=== PATIENT | male | born 1975 | race Hispanic/Latino ===

== ENCOUNTER 2017-11-07 15:39 | Emergency (ER) | payer OTHER | END 2017-11-07 17:35 | disposition home or self-care (01) | LOC: EDH 15:39 | DX: S50.12XA Contusion of left forearm, initial encounter (principal); J20.9 Acute bronchitis, unspecified; Z88.0 Allergy status to penicillin; Z88.1 Allergy status to other antibiotic agents; Z87.891 Personal history of nicotine dependence; W18.39XA Other fall on same level, initial encounter; Y93.89 Activity, other specified; Y92.89 Other specified places as the place of occurrence of the external cause; Y99.8 Other external cause status | CPT/HCPCS: 71046; 73090; 87804 ==

== ENCOUNTER → 2018-01-04 | Outpatient (CLI) | payer OTHER | END | disposition home or self-care (01) | LOC: RAH 10:32 | PROVIDERS: ATTEND Internal Medicine | DX: Z01.818 Encounter for other preprocedural examination (principal); J96.10 Chronic respiratory failure, unspecified whether with hypoxia or hypercapnia; G47.33 Obstructive sleep apnea (adult) (pediatric) | CPT/HCPCS: 71046 ==

== ENCOUNTER → 2018-01-20 | Outpatient (CLI) | payer OTHER ==
[~2018-01-20] MED LIST: ALBUTEROL SULFATE 0.083% 2.5 MG/3 ML INH IH ONE
== END | disposition home or self-care (01) ==
LOC: RESP 14:39
PROVIDERS: ATTEND Internal Medicine
DX: E66.2 Morbid (severe) obesity with alveolar hypoventilation (principal); R06.02 Shortness of breath
CPT/HCPCS: 94060; 94727; 94729

== ENCOUNTER → 2018-01-26 | Outpatient (CLI) | payer OTHER | END | disposition home or self-care (01) | LOC: SHCH 10:11 | PROVIDERS: ATTEND Internal Medicine Cardiovascular Disease | DX: I11.0 Hypertensive heart disease with heart failure (principal); I50.9 Heart failure, unspecified; G47.30 Sleep apnea, unspecified; I25.10 Atherosclerotic heart disease of native coronary artery without angina pectoris; I48.91 Unspecified atrial fibrillation | CPT/HCPCS: 93306 ==

== ENCOUNTER 2019-01-14 16:20 | Emergency (ER) | payer OTHER | END 2019-01-14 18:02 | disposition home or self-care (01) | LOC: EDH 16:20 | DX: S13.4XXA Sprain of ligaments of cervical spine, initial encounter (principal); S29.012A Strain of muscle and tendon of back wall of thorax, initial encounter; R51 Headache; I50.9 Heart failure, unspecified; Z88.1 Allergy status to other antibiotic agents; Z88.0 Allergy status to penicillin; Z98.890 Other specified postprocedural states; Z87.891 Personal history of nicotine dependence; V59.49XA Driver of pick-up truck or van injured in collision with other motor vehicles in traffic accident, initial encounter; Y93.89 Activity, other specified; Y92.89 Other specified places as the place of occurrence of the external cause; Y99.8 Other external cause status | CPT/HCPCS: 72040; 72072 ==

== ENCOUNTER 2019-03-02 18:16 | Emergency (ER) | payer OTHER ==
[2019-03-02] MEDS ORDERED: DIAZEPAM 5 MG TABLET ONE (19:12)
[2019-03-02] MEDS ORDERED: ACETAMINOPHEN EXTRA STRENGTH 500 MG TABLET ONE (19:12)
== END 2019-03-02 20:12 | disposition home or self-care (01) ==
LOC: EDH 18:16
DX: G43.909 Migraine, unspecified, not intractable, without status migrainosus (principal); I50.9 Heart failure, unspecified; E66.01 Morbid (severe) obesity due to excess calories; Z88.1 Allergy status to other antibiotic agents; Z88.0 Allergy status to penicillin; Z68.44 Body mass index [BMI] 60.0-69.9, adult

== ENCOUNTER 2020-02-23 00:50 | Emergency (ER) | payer OTHER ==
[2020-02-23] MEDS ORDERED: LIDOCAINE 5% TOPICAL PATCH TP ONE (01:54)
== END 2020-02-23 02:11 | disposition home or self-care (01) ==
LOC: EDH 00:50
DX: S20.229A Contusion of unspecified back wall of thorax, initial encounter (principal); S30.0XXA Contusion of lower back and pelvis, initial encounter; E66.01 Morbid (severe) obesity due to excess calories; Z88.0 Allergy status to penicillin; Z88.1 Allergy status to other antibiotic agents; Z88.5 Allergy status to narcotic agent; W18.39XA Other fall on same level, initial encounter; Y93.89 Activity, other specified; Y92.89 Other specified places as the place of occurrence of the external cause; Y99.8 Other external cause status
CPT/HCPCS: 72072; 72100; 72170

== ENCOUNTER 2021-01-30 21:30 | Emergency (ER) | payer OTHER ==
[2021-01-30] MEDS ORDERED: DIPHENHYDRAMINE HCL 25 MG CAPSULE ONE (21:51)
[2021-01-30] MEDS ORDERED: FAMOTIDINE 20MG TAB 20 MG TAB ONE (21:51)
[2021-01-30] MEDS ORDERED: METHYLPREDNISOLONE SOD SUCC 125MG/2ML VIAL ONE (21:52)
== END 2021-01-30 22:10 | disposition home or self-care (01) ==
LOC: EDH 21:30
DX: L50.0 Allergic urticaria (principal); I50.9 Heart failure, unspecified; Z88.0 Allergy status to penicillin; Z88.1 Allergy status to other antibiotic agents; Z72.0 Tobacco use; E66.01 Morbid (severe) obesity due to excess calories; Z68.43 Body mass index [BMI] 50.0-59.9, adult
CPT/HCPCS: 96372; 99283; J2930; Q0163

== ENCOUNTER 2021-02-23 00:44 | Emergency (ER) | payer OTHER ==
[2021-02-23] MEDS ORDERED: SULFAMETHOX-TMP DS 800/160 TAB ONE (01:34)
[2021-02-23] MEDS ORDERED: LIDOCAINE HCL 2% JELLY 5 ML ONE (01:34)
[2021-02-23] MEDS ORDERED: KETOROLAC TROMETHAMINE 60 MG/2 ML VIAL ONE (01:34)
== END 2021-02-23 01:53 | disposition home or self-care (01) ==
LOC: EDH 00:44
DX: K02.9 Dental caries, unspecified (principal); K04.7 Periapical abscess without sinus; I50.9 Heart failure, unspecified; E66.01 Morbid (severe) obesity due to excess calories; Z88.0 Allergy status to penicillin; Z88.1 Allergy status to other antibiotic agents; Z68.43 Body mass index [BMI] 50.0-59.9, adult; Z98.890 Other specified postprocedural states
CPT/HCPCS: 96372; 99283; J1885

== ENCOUNTER 2021-04-05 21:14 | Emergency (ER) | payer OTHER ==
[~2021-04-05] VITALS: Ht 167.6 cm; Wt 156.5 kg
[2021-04-05 21:16] VITALS: BP 126/75
[2021-04-05 23:15] VITALS: BP 129/70
[2021-04-05] MEDS ORDERED: KETOROLAC 60 MG VIAL (30MG/ML) IM SCH (23:15)
[2021-04-05] MEDS ORDERED: NAPR-1023 PO (23:58)
[2021-04-05] MEDS ORDERED: KETOROLAC 60 MG VIAL (30MG/ML) ONE (23:59)
== END 2021-04-06 00:36 | disposition home or self-care (01) ==
LOC: EDH 21:14
DX: S60.212A Contusion of left wrist, initial encounter (principal); S60.222A Contusion of left hand, initial encounter; I10 Essential (primary) hypertension; Z98.890 Other specified postprocedural states; Z88.0 Allergy status to penicillin; Z88.1 Allergy status to other antibiotic agents; Z79.899 Other long term (current) drug therapy; W01.198A Fall on same level from slipping, tripping and stumbling with subsequent striking against other object, initial encounter; Y93.89 Activity, other specified; Y92.89 Other specified places as the place of occurrence of the external cause; Y99.8 Other external cause status
CPT/HCPCS: 29125; 73110; 73130; 96372; 99284; J1885

== ENCOUNTER 2021-09-09 07:08 | Day surgery (SDC) | payer OTHER ==
[2021-09-09] VITALS (7 sets, daily range): BP systolic 99–169; BP diastolic 56–82
[~2021-09-09] VITALS: Ht 162.6 cm; Wt 166.9 kg
[~2021-09-09 07:08] MED LIST changes: -ALBUTEROL SULFATE 0.083% 2.5 MG/3 ML INH IH ONE; +NAPR-1023 PO
[2021-09-09] MEDS ORDERED: 0.9%NACL 1000ML 1,000 ML IV SCH (08:00)
[2021-09-09] MEDS ORDERED: SODIUM TETRADECYL SULFATE 30 MG/ML IV SCH (08:00)
[2021-09-09] MEDS ORDERED: MIDAZOLAM HCL 1 MG/ML 5ML VIAL ONE (08:04)
[2021-09-09] MEDS ORDERED: LIDOCAINE HCL 1% 20 ML VIAL ONE (08:04)
[2021-09-09] MEDS ORDERED: PROPOFOL 10 MG/ML 20ML VIAL IV ONE (08:04)
[2021-09-09] MEDS ORDERED: KETAMINE 50MG/ML SYRINGE 50 MG/ML DISP.SYRIN IV ONE (08:11)
== END 2021-09-09 09:20 | disposition home or self-care (01) ==
LOC: DAH 07:08
PROVIDERS: ATTEND Surgery
DX: K21.9 Gastro-esophageal reflux disease without esophagitis (principal); Z20.822 Contact with and (suspected) exposure to COVID-19; I10 Essential (primary) hypertension; G47.30 Sleep apnea, unspecified; M19.90 Unspecified osteoarthritis, unspecified site; F32.9 Major depressive disorder, single episode, unspecified; E66.01 Morbid (severe) obesity due to excess calories; Z82.3 Family history of stroke; Z82.49 Family history of ischemic heart disease and other diseases of the circulatory system; Z87.891 Personal history of nicotine dependence; Z86.73 Personal history of transient ischemic attack (TIA), and cerebral infarction without residual deficits; Z98.84 Bariatric surgery status; Z88.0 Allergy status to penicillin; Z88.8 Allergy status to other drugs, medicaments and biological substances; Z91.040 Latex allergy status; Z68.43 Body mass index [BMI] 50.0-59.9, adult
CPT/HCPCS: 43236; 87635; A4215 ×2; A4221; A4222; A4223; A4606; A4620; A4657; A4663; C9803; J2250; J2704; J3490; J7030

== ENCOUNTER 2021-09-23 22:28 | Emergency (ER) | payer OTHER ==
[~2021-09-23] VITALS: Ht 165.1 cm; Wt 163.3 kg
[2021-09-23] MEDS ORDERED: CYCLOBENZAPRINE HCL 10 MG TABLET PO ONE (23:00)
[2021-09-23] MEDS ORDERED: HYDROCODONE/ACETAMINOPHEN 10/325 MG TAB PO ONE (23:00)
[2021-09-23 23:45] VITALS: BP 120/76
[2021-09-23] MEDS ORDERED: NAPR-1180 PO (23:58)
[2021-09-23] MEDS ORDERED: CYCL10TA16 PO (23:58)
== END 2021-09-24 00:18 | disposition home or self-care (01) ==
LOC: EDH 22:28
DX: S16.1XXA Strain of muscle, fascia and tendon at neck level, initial encounter (principal); S29.012A Strain of muscle and tendon of back wall of thorax, initial encounter; Z88.1 Allergy status to other antibiotic agents; Z88.0 Allergy status to penicillin; Z79.1 Long term (current) use of non-steroidal anti-inflammatories (NSAID); F17.200 Nicotine dependence, unspecified, uncomplicated; V49.49XA Driver injured in collision with other motor vehicles in traffic accident, initial encounter; Y93.89 Activity, other specified; Y92.89 Other specified places as the place of occurrence of the external cause; Y99.8 Other external cause status
CPT/HCPCS: 72040; 72072

== ENCOUNTER 2021-11-22 07:20 | Day surgery (SDC) | payer OTHER ==
[~2021-11-22] VITALS: Ht 167.6 cm; Wt 157.4 kg
[~2021-11-22 07:20] MED LIST changes: +0.9%NACL 1000ML 1,000 ML IV ONE; +BUPIVACAINE/PF 0.25% 30ML VIAL IJ ONE; +CYCL10TA16 PO; +LIDOCAINE 1%-EPI 1:100,000 20 ML VIAL IJ ONE; +NAPR-1180 PO; +SODIUM TETRADECYL SULFATE 30 MG/ML VIAL IV SCH
[2021-11-22] MEDS ORDERED: ASPI-1197 PO (07:39)
[2021-11-22 07:40] VITALS: BP 124/76
[2021-11-22] MEDS ORDERED: PROPOFOL 10 MG/ML 20ML VIAL IV ONE (09:00)
[2021-11-22] MEDS ORDERED: MIDAZOLAM HCL 1 MG/ML 2ML VIAL ONE (09:01)
[2021-11-22 09:10] VITALS: BP 153/92
[2021-11-22 09:15] VITALS: BP 148/98
[2021-11-22 09:20] VITALS: BP 145/85
[2021-11-22 09:25] VITALS: BP 130/94
[2021-11-22 09:40] VITALS: BP 131/84
== END 2021-11-22 09:55 | disposition home or self-care (01) ==
LOC: DAH 07:20
PROVIDERS: ATTEND Surgery
DX: K21.9 Gastro-esophageal reflux disease without esophagitis (principal); Z20.822 Contact with and (suspected) exposure to COVID-19; I10 Essential (primary) hypertension; E66.01 Morbid (severe) obesity due to excess calories; E11.9 Type 2 diabetes mellitus without complications; F32.9 Major depressive disorder, single episode, unspecified; Z98.890 Other specified postprocedural states; Z86.73 Personal history of transient ischemic attack (TIA), and cerebral infarction without residual deficits; Z82.49 Family history of ischemic heart disease and other diseases of the circulatory system; Z82.3 Family history of stroke; Z87.891 Personal history of nicotine dependence; Z68.43 Body mass index [BMI] 50.0-59.9, adult; Z98.84 Bariatric surgery status; Z79.899 Other long term (current) drug therapy; Z88.8 Allergy status to other drugs, medicaments and biological substances; Z88.0 Allergy status to penicillin
CPT/HCPCS: 43236; 87426; A4215 ×2; A4221; A4222; A4223; A4606; A4620; A4663; J2250; J2704; J3490 ×3; J7030

== ENCOUNTER 2021-12-04 10:01 | Emergency (ER) | payer OTHER ==
[~2021-12-04] VITALS: Ht 167.6 cm; Wt 154.2 kg
[~2021-12-04 10:01] MED LIST changes: -0.9%NACL 1000ML 1,000 ML IV ONE; +ASPI-1197 PO; -BUPIVACAINE/PF 0.25% 30ML VIAL IJ ONE; -CYCL10TA16 PO; -LIDOCAINE 1%-EPI 1:100,000 20 ML VIAL IJ ONE; -NAPR-1023 PO; -NAPR-1180 PO; -SODIUM TETRADECYL SULFATE 30 MG/ML VIAL IV SCH
[2021-12-04 10:26] LABS: BASOPHILS % (AUTO) 0.2 % (0.0-5.0); EOSINOPHILS % (AUTO) 1.3 % (0.0-8.0); HEMATOCRIT 45.9 % (42-54); LYMPHOCYTES % (AUTO) 8.6 % (21.0-51.0); MEAN CORPUSCULAR HEMOGLOBIN 27.4 pg (27.0-33.0); MEAN CORPUSCULAR HGB CONC 32.9 g/dL (32.0-36.0); MEAN CORPUSCULAR VOLUME 83.2 fL (79-99); MONOCYTES % (AUTO) 7.9 % (3.0-13.0); NEUTROPHILS % (AUTO) 81.4 % (40.0-77.0); PLATELET COUNT (AUTO) 245 K/uL (130-400); RED BLOOD CELL COUNT(AUTO) 5.52 MIL/uL (4.50-6.20); RED CELL DISTRIBUTION WIDTH 13.4 % (11.0-15.5); WHITE BLOOD COUNT (AUTO) 8.2 K/uL (4.8-10.8)
[2021-12-04 10:37] LABS: ALBUMIN 3.4 g/dL (3.5-5.0); BILIRUBIN,TOTAL 1.3 mg/dL (0.2-1.0); CREATININE 0.9 mg/dL (0.5-1.5); POTASSIUM 4.2 mmol/L (3.5-5.1); TOTAL PROTEIN, SERUM 7.6 g/dL (6.0-8.3)
[2021-12-04 10:53] LABS: B-TYPE NATRIURETIC PEPTIDE 13 pg/mL (0-100)
[2021-12-04] MEDS ORDERED: LIDOCAINE HCL 2% VISCOUS 15 ML UDCUP ONE (12:52)
[2021-12-04] MEDS ORDERED: DICYCLOMINE HCL 10 MG/5 ML ML PO ONE (12:53)
[2021-12-04] MEDS ORDERED: LIDOCAINE HCL 2% VISCOUS 15 ML UDCUP PO ONE (13:00)
[2021-12-04] MEDS ORDERED: MAG/ALUM/SIMETH 30 ML UDCUP PO ONE (13:00)
[2021-12-04] MEDS ORDERED: COMPOUND PO MISCELLANEOUS 1 EACH MISC MISC PRN (13:00)
[2021-12-04] MEDS ORDERED: LIDO 2% VISC 30ML+MAG/AL/SIMETH 30ML+DICYCLOMINE 20MG 10ML PO SCH ×3 (13:00)
[2021-12-04] MEDS ORDERED: IOHEXOL-350 75 ML VIAL IV ONE (13:03)
[2021-12-04] MEDS ORDERED: ONDANSETRON 4MG INJ ONE (13:16)
[2021-12-04] MEDS ORDERED: DIATR MEGLU/DIATRIZOATE SODIUM 30 ML BOTTLE ONE (13:16)
[2021-12-04] MEDS ORDERED: FAMOTIDINE 20MG VIAL IV ONE ×2 (13:17→13:30)
[2021-12-04] MEDS ORDERED: MORPHINE 2 MG SYG ONE (13:17)
[2021-12-04] MEDS ORDERED: ONDANSETRON 4MG INJ IVP ONE (13:30)
[2021-12-04] MEDS ORDERED: MORPHINE 2 MG SYG IVP ONE (13:30)
[2021-12-04 13:41] LABS: APPEARANCE,URINE Clear (CLEAR); BILIRUBIN,URINE Negative (NEGATIVE); COLOR,URINE Dark Yellow (YELLOW); GLUCOSE, URINE (UA) Negative (NEGATIVE); KETONES,URINE 40 mg/dL (NEGATIVE); LEUKOCYTE ESTERASE ,URINE Trace (NEGATIVE); NITRATE,URINE Negative (NEGATIVE); OCCULT BLOOD,URINE Negative (NEGATIVE); PH,URINE 5.5 (5.0-8.0); PROTEIN,URINE Trace mg/dL (NEGATIVE)
[2021-12-04 13:53] LABS: BACTERIA,URINE Rare /HPF (None Seen); RBC,URINE 0-1 /HPF (0-1); SQUAMOUS EPITHELIAL CELL,UR Rare /HPF (0-2)
[2021-12-04] MEDS ORDERED: TRAM50TA2 PO (15:43)
[2021-12-04] MEDS ORDERED: FAMO-136 PO (15:43)
[2021-12-04] MEDS ORDERED: LEVO750T46 PO (15:43)
[2021-12-04 15:46] VITALS: BP 141/78
[2021-12-12] MEDS ORDERED: PANT40TA54 PO (09:47)
[2021-12-12] MEDS ORDERED: LORA10TA7 PO (09:47)
[2021-12-12] MEDS ORDERED: ATOR10TA69 PO (09:47)
[2021-12-12] MEDS ORDERED: METO25TA6 PO (09:47)
[2021-12-12] MEDS ORDERED: LISI10TA24 PO (09:47)
[2021-12-12] MEDS ORDERED: APIX5TAB PO (16:34)
[2021-12-12] MEDS ORDERED: FURO40TA5 PO (16:40)
[2021-12-12] MEDS ORDERED: LEVO500T90 PO (16:40)
[2021-12-12] MEDS ORDERED: METR-172 PO (16:40)
[2021-12-12] MEDS ORDERED: MAGN400T7 PO (16:40)
[2021-12-12] MEDS ORDERED: ALBU6.7H9 IH (16:40)
[2021-12-12] MEDS ORDERED: PANT40GR PO (16:40)
== END 2021-12-04 15:53 | disposition home or self-care (01) ==
LOC: EDH 10:01
DX: J18.9 Pneumonia, unspecified organism (principal); K21.9 Gastro-esophageal reflux disease without esophagitis; I50.9 Heart failure, unspecified; G89.29 Other chronic pain; Z98.890 Other specified postprocedural states; Z88.0 Allergy status to penicillin; Z88.1 Allergy status to other antibiotic agents; Z79.82 Long term (current) use of aspirin
CPT/HCPCS: 36415; 71045; 74176; 80053; 81001; 83880; 84484 ×2; 85025; 93005; 96374; 96375; 99285; J2405; J3490; Q9963; Q9967

== ENCOUNTER 2022-02-17 05:51 | Day surgery (SDC) | payer OTHER ==
[2022-02-17] VITALS (8 sets, daily range): BP systolic 115–147; BP diastolic 77–87
[~2022-02-17 05:51] MED LIST changes: +ALBU6.7H9 IH; +APIX5TAB PO; -ASPI-1197 PO; +ATOR10TA69 PO; +FAMO-136 PO; +FURO40TA5 PO; +LEVO500T90 PO; +LISI10TA24 PO; +LORA10TA7 PO; +MAGN400T7 PO; +METO25TA6 PO; +METR-172 PO; +PANT40GR PO; +PANT40TA54 PO; +TRAM50TA2 PO
[2022-02-17] MEDS ORDERED: SODIUM TETRADECYL SULFATE 30 MG/ML VIAL IV SCH (07:00)
[2022-02-17] MEDS ORDERED: PROPOFOL 10 MG/ML 20ML VIAL IV ONE (07:25)
[2022-02-17] MEDS ORDERED: GLYCOPYRROLATE 0.2 MG/ML 5 ML VIAL ONE (07:26)
[2022-02-17] MEDS ORDERED: DOCU-116 PO (09:04)
[2022-02-17] MEDS ORDERED: 0.9%NACL 1000ML 1,000 ML IV ONE (10:42)
== END 2022-02-17 09:20 | disposition home or self-care (01) ==
LOC: ENDO 05:51 → DAH 05:51 → ENDO 09:20
PROVIDERS: ATTEND Surgery
DX: K21.9 Gastro-esophageal reflux disease without esophagitis (principal); R13.10 Dysphagia, unspecified; I10 Essential (primary) hypertension; F32.A Depression, unspecified; Z98.890 Other specified postprocedural states; Z87.891 Personal history of nicotine dependence; Z82.49 Family history of ischemic heart disease and other diseases of the circulatory system; Z82.3 Family history of stroke; Z88.8 Allergy status to other drugs, medicaments and biological substances; Z88.0 Allergy status to penicillin; E66.01 Morbid (severe) obesity due to excess calories; Z68.43 Body mass index [BMI] 50.0-59.9, adult
CPT/HCPCS: 43236; 71045; 87635; 93005; A4215 ×2; A4216; A4221; A4222; A4223; A4606; A4620; A4657; A4663; C9803; J2704; J3490 ×2; J7030

== ENCOUNTER 2025-09-02 15:32 | Emergency (ER) | payer OTHER ==
[~2025-09-02] VITALS: Ht 165.1 cm; Wt 120.2 kg
[~2025-09-02 15:32] MED LIST changes: -ALBU6.7H9 IH; -APIX5TAB PO; -ATOR10TA69 PO; +DOCU-116 PO; -FAMO-136 PO; -FURO40TA5 PO; -LEVO500T90 PO; -LISI10TA24 PO; -LORA10TA7 PO; -MAGN400T7 PO; +METH-662 PO; -METO25TA6 PO; -METR-172 PO; +NAPR-1194 PO; -PANT40GR PO; -PANT40TA54 PO; -TRAM50TA2 PO
[2025-09-02] MEDS ORDERED: KETO10TA2 PO (16:54)
[2025-09-02] MEDS ORDERED: METH-662 PO (16:54)
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
[2025-09-02 17:13] VITALS: BP 145/81; PULSE 69; RESP 20; TEMP 98.6; O2SAT 97
== END 2025-09-02 17:15 | disposition home or self-care (01) ==
LOC: EDH 15:32
DX: S16.1XXA Strain of muscle, fascia and tendon at neck level, initial encounter (principal); E11.9 Type 2 diabetes mellitus without complications; F17.200 Nicotine dependence, unspecified, uncomplicated; I11.0 Hypertensive heart disease with heart failure; I50.9 Heart failure, unspecified; Z86.73 Personal history of transient ischemic attack (TIA), and cerebral infarction without residual deficits; Z88.0 Allergy status to penicillin; Z88.1 Allergy status to other antibiotic agents; Z98.84 Bariatric surgery status; V49.40XA Driver injured in collision with unspecified motor vehicles in traffic accident, initial encounter; Y93.89 Activity, other specified; Y92.89 Other specified places as the place of occurrence of the external cause; Y99.8 Other external cause status
CPT/HCPCS: 99283